=== PATIENT | female | born 1990 | race African-American/Black ===

== ENCOUNTER 2016-08-01 13:23 | Emergency (ER) | payer OTHER ==
[2016-08-01 13:42] VITALS: BP 111/58; PULSE 66; TEMP 97.8; BMI 21.7
[2016-08-01] MEDS ORDERED: IBUPROFEN 600 MG TABLET (FP) PO ONE ×2 (14:49→14:51)
--- NOTE | 2016-08-01 15:08 | PDOC ---
History of Present Illness - General Chief Complaint: Pain Stated Complaint: L HAND INJURY Time Seen by Provider: 08/01/16 14:26 History Source: Patient Exam Limitations: No Limitations - History of Present Illness Initial Comments: 08/01/16 15:07 26 yr female no medical history with pain to left hand fter fall 3 days ago and a cough. no fever no chills no abd pain . Past History - Past Medical History Allergies/Adverse Reactions: Allergies Allergy/AdvReac Type Severity Reaction Status Date / Time No Known Allergies Allergy Verified 08/01/16 13:42 Home Medications: Ambulatory Orders NK [No Known Home Medication] 08/01/16 Disorders: Yes (IRREG MENSES) Suicide Attempt (Hx): No - Immunization History Immunization Up to Date: (?) - Psycho/Social/Smoking Cessation Hx Anxiety: No Suicidal Ideation: No Smoking Status: No Smoking History: Never smoked Number of Cigarettes Smoked Daily: 0 Information on smoking cessation initiated: No Hx Alcohol Use: No Drug/Substance Use Hx: No *Physical Exam - Vital Signs Last Vital Signs Temp Pulse Resp BP Pulse Ox 97.8 F 66 18 111/58 99 08/01/16 13:39 08/01/16 13:39 08/01/16 13:39 08/01/16 13:39 08/01/16 13:39 - Physical Exam General Appearance: Yes: Nourished, Appropriately Dressed HEENT: positive: EOMI, GIGI, TMs Normal, Pharynx Normal Neck: positive: Supple. negative: Tender, Lymphadenopathy (R), Lymphadenopathy (L) Respiratory/Chest: positive: Lungs Clear, Normal Breath Sounds. negative: Chest Tender Cardiovascular: positive: Regular Rhythm, Regular Rate Musculoskeletal: positive: Normal Inspection Extremity: positive: Normal Capillary Refill, Normal Inspection, Normal Range of Motion Integumentary: positive: Normal Color, Dry, Warm Neurologic: positive: Fully Oriented, Alert, Normal Mood/Affect, Normal Response , Motor Strength 5/5 ED Treatment Course - ADDITIONAL ORDERS Additional order review: Laboratory Results 08/01/16 13:54 Urine HCG, Qual Negative - RADIOLOGY Radiology Studies Ordered: Category Date Time Status HAND- LEFT [RAD] Stat Radiology 08/01/16 14:49 Taken - Medications Given in the ED: ED Medications Discontinued Medications Generic Name Dose Route Start Last Admin Trade Name Freq PRN Reason Stop Dose Admin Ibuprofen 600 mg 08/01/16 14:49 08/01/16 14:53 Motrin - PO 08/01/16 14:50 600 mg ONCE ONE Administration Medical Decision Making - Medical Decision Making 08/01/16 15:09 cc: left hand/fifth finger injury 3 days ago cough yesterday with pain to back with coughing no SOB no chest pain no fever or chills no PE risk factors will give motrin and xray left hand r/o fracture *DC/Admit/Observation/Transfer Diagnosis at time of Disposition: Cough Hand contusion Qualifiers: Encounter type: initial encounter Laterality: left Qualified Code(s): S60.222A - Contusion of left hand, initial encounter - Discharge Dispostion Disposition: HOME Condition at time of disposition: Good - Referrals Referrals: Sneha Portillo [Primary Care Provider] - - Patient Instructions Additional Instructions: take motrin as needed for pain (over the counter ibuprofen, advil or motrin take 600mg every 6hrs) follow with your doctor if any symptoms worsen
== END 2016-08-01 15:12 | disposition home or self-care (01) ==
LOC: JERFT 13:23
DX: S60.222A Contusion of left hand, initial encounter (principal); R05 Cough; W19.XXXA Unspecified fall, initial encounter; Y93.89 Activity, other specified; Y92.89 Other specified places as the place of occurrence of the external cause
CPT/HCPCS: 73130-TC-LT; 84703; 99281-25

== ENCOUNTER 2017-05-28 16:58 | Emergency (ER) | payer SELFPAY ==
[2017-05-28 17:02] VITALS: BP 122/73; PULSE 71; TEMP 98.6; BMI 20.3
--- NOTE | 2017-05-28 17:02 | PDOC ---
Rapid Medical Evaluation Time Seen by Provider: 05/28/17 17:00 Medical Evaluation: Allergies Allergy/AdvReac Type Severity Reaction Status Date / Time No Known Allergies Allergy Verified 08/01/16 13:42 05/28/17 17:00 I have performed a brief in person evaluation of this patient. The patient presents with chief complaint of : toothache Pertinent PE findings: left sided facial pain and swelling for 2 days c/o left upper toothache I have ordered the following: The patient will proceed to the ER for further evaluation. Discharge Disposition - Referrals Referrals: Sneha Portillo [Primary Care Provider] - - Patient Instructions - Post Discharge Activity
--- NOTE | 2017-05-28 17:41 | PDOC ---
History of Present Illness - General Chief Complaint: Toothache Stated Complaint: TOOTH INFECTION Time Seen by Provider: 05/28/17 17:00 - History of Present Illness Initial Comments: 05/28/17 17:36 CHIEF COMPLAINT: tooth pain HISTORY OF PRESENT ILLNESS: 27 yo F with no PMH presents to [facility] with severe tooth pain. Patient states "my tooth broke yesterday and my entire face and cheek is hurting so badly." Patient denies any abscess, fever, chills, nausea, vomiting, diarrhea. PAST MEDICAL HISTORY: Denies past medical history FAMILY HISTORY: Denies SOCIAL HISTORY: Denies tobacco, alcohol, illicit drug use. SURGICAL HISTORY: Denies ALLERGIES: No known drug allergies REVIEW OF SYSTEMS General/Constitutional: Denies fever or chills. Denies weakness, weight change. HEENT: "My tooth hurts so bad it is radiating to my face." Denies change in vision. Denies ear pain or discharge. Denies sore throat. Cardiovascular: Denies chest pain or shortness of breath. Respiratory: Denies cough, wheezing, or hemoptysis. Gastrointestinal: Denies nausea, vomiting, diarrhea or constipation. Denies rectal bleeding. Genitourinary: Denies dysuria, frequency, or change in urination. Musculoskeletal: Denies joint or muscle swelling or pain. Denies neck or back pain. PHYSICAL EXAM General Appearance: Well-appearing, appropriately dressed. No apparent distress , no intoxication. HEENT: Missing 2nd superior L molar, fractured 1st suprior L molar. EOMI, PERRLA , normal ENT inspection, normal voice, TMs normal, pharynx normal. No conjunctival pallor. No photophobia, scleral icterus. Respiratory/Chest: Lungs CTAB. Cardiovascular: RRR. S1, S2. Musculoskeletal/Extremities: Normal inspection. FROM of all extremities, normal capillary refill. No tenderness to extremities, pedal edema, swelling, erythema or deformity. Integumentary: Appropriate color, dry, warm. No cyanosis, erythema, jaundice or rash Neurologic: hay baler II-XII intact. Fully oriented, alert. Appropriate mood/affect. Motor strength 5/5. No appreciable EOM palsy, facial droop or sensory deficit. Past History - Past Medical History Allergies/Adverse Reactions: Allergies Allergy/AdvReac Type Severity Reaction Status Date / Time No Known Allergies Allergy Verified 05/28/17 17:02 Home Medications: Ambulatory Orders Clindamycin [Cleocin -] 150 mg PO Q6H #28 capsule 05/28/17 Clindamycin [Cleocin -] 300 mg PO Q6HPO #28 capsule 05/28/17 COPD: No Disorders: Yes (IRREG MENSES) - Immunization History Immunization Up to Date: (?) - Suicide/Smoking/Psychosocial Hx Smoking Status: No Smoking History: Never smoked Number of Cigarettes Smoked Daily: 0 Hx Alcohol Use: No Drug/Substance Use Hx: No Substance Use Type: None *Physical Exam - Vital Signs Last Vital Signs Temp Pulse Resp BP Pulse Ox 98.6 F 71 20 122/73 100 05/28/17 16:59 05/28/17 16:59 05/28/17 16:59 05/28/17 16:59 05/28/17 16:59 Medical Decision Making - Medical Decision Making 05/28/17 17:38 27 yo F with no PMH presents to [facility] with severe tooth pain. Superior alveolar nerve block performed, patient expressed immediate relief. Clindamycin 450 mg TID *DC/Admit/Observation/Transfer Diagnosis at time of Disposition: Pain, dental - Discharge Dispostion Disposition: HOME Condition at time of disposition: Stable Admit: No - Prescriptions Prescriptions: Clindamycin [Cleocin -] 150 mg PO Q6H #28 capsule Clindamycin [Cleocin -] 300 mg PO Q6HPO #28 capsule - Referrals Referrals: Sneha Portillo [Primary Care Provider] - - Patient Instructions Printed Discharge Instructions: DI for Dental Pain Additional Instructions: Please take medications as prescribed; complete the entire course of medication unless otherwise directed by your dentist. Please see your dentist within the next 3-5 days for further treatment of your tooth pain. If you develop increased swelling to your face, any abscess inside your mouth, fever, chills, nausea, vomiting, diarrhea, rash, or any new or worsening symptoms, please return to the ER. - Post Discharge Activity
== END 2017-05-28 17:46 | disposition home or self-care (01) ==
LOC: JERFT 16:58
DX: K08.89 Other specified disorders of teeth and supporting structures (principal)
CPT/HCPCS: 99281-25

== ENCOUNTER 2021-11-14 00:10 | Emergency (ER) | payer OTHER ==
[2021-11-14 00:37] VITALS: BP 102/65; PULSE 77; TEMP 97.8; BMI 21.1
[2021-11-14 02:08] LABS: BASO % 0.4 % (0-2.0); EOS % 1.2 % (0-4.5); HEMATOCRIT 36.9 % (32.4-45.2); HEMOGLOBIN 12.2 GM/dL (10.7-15.3); LYMPH % 31.6 % (8-40); MCH 26.6 pg (25.7-33.7); MCHC 33.2 g/dl (32.0-36.0); MEAN CELL VOLUME 80.2 fl (80-96); MEAN PLT VOLUME 8.4 fl (7.5-11.1); MONO % 8.7 % (3.8-10.2); NEUT % 58.1 % (42.8-82.8); PLATELET COUNT 251 10^3/uL (134-434); WHITE BLOOD COUNT 8.4 K/mm3 (4.0-10.0)
[2021-11-14 02:11] LABS: EPI CELLS 10 /uL (0-25.1); HYALINE CASTS 1 /uL (0-3.1); PH,URINE 7.5 (5.0-8.0); URINE APPEARANCE CLEAR; URINE BACTERIA 414 /uL (0-1359); URINE BILIRUBIN NEGATIVE (NEGATIVE); URINE COLOR YELLOW; URINE GLUCOSE (UA) NEGATIVE (NEGATIVE); URINE KETONE 1+ (NEGATIVE); URINE LEUK ESTERASE NEGATIVE (NEGATIVE); URINE NITRITE NEGATIVE (NEGATIVE); URINE PROTEIN NEGATIVE (NEGATIVE); URINE RBC 37 /uL (0-23.9); URINE WBC 10 /uL (0-25.8)
[2021-11-14 02:37] LABS: CALCIUM 8.9 mg/dL (8.5-10.1)
[2021-11-14 02:38] LABS: ALBUMIN 3.7 g/dl (3.4-5.0); BLOOD UREA NITROGEN 6.6 mg/dL (7-18)
[2021-11-14 02:41] LABS: CREATININE 0.5 mg/dL (0.55-1.3)
[2021-11-14 02:42] LABS: BILIRUBIN,TOTAL 0.4 mg/dL (0.2-1)
== END 2021-11-14 04:13 | disposition home or self-care (01) ==
LOC: JER 00:10
DX: O20.0 Threatened abortion (principal); N39.0 Urinary tract infection, site not specified
CPT/HCPCS: 36415; 76801-TC; 80053; 81003; 85025; 86850; 86900; 86901; 87086; 99284-25

== ENCOUNTER 2021-11-17 11:07 | Emergency (ER) | payer OTHER ==
[2021-11-17 11:23] VITALS: BP 104/59; PULSE 73; TEMP 97.7; BMI 20.3
== END 2021-11-17 13:51 | disposition home or self-care (01) ==
LOC: JER 11:07
DX: O99.341 Other mental disorders complicating pregnancy, first trimester (principal); F41.9 Anxiety disorder, unspecified; Z3A.13 13 weeks gestation of pregnancy
CPT/HCPCS: 99281-25

== ENCOUNTER 2021-12-23 19:11 | Emergency (ER) | payer OTHER ==
[2021-12-23 19:23] VITALS: BP 110/63; PULSE 86; TEMP 98.9; BMI 20.3
[2021-12-23] MEDS ORDERED: FLUORESCEIN NA 1 EA STRIP OD ONE (20:30)
[2021-12-23] MEDS ORDERED: TETRACAINE 0.5% OPHTH SOLN 2 ML BOTTLE OD ONE (20:30)
[2021-12-23] MEDS ORDERED: TETRACAINE 0.5% OPHTH SOLN 2 ML BOTTLE ONE (20:31)
[2021-12-23] MEDS ORDERED: FLUORESCEIN NA 1 EA STRIP ONE (20:31)
[2021-12-23] MEDS ORDERED: ERYTHROMYCIN 0.5% OPHTHALMIC OINTMENT 3.5 GM TUBE OD ONE (23:37)
[2021-12-23] MEDS ORDERED: CYCLOPENTOLATE HCL 1% OPHTH SOLN 2 ML BOTTLE OD ONE (23:37)
[2021-12-24] MEDS ORDERED: CIPROFLOXACIN 0.3% EYE DROPS 5 ML BOTTLE ONE (00:24)
[2021-12-24] MEDS ORDERED: ERYTHROMYCIN 0.5% OPHTHALMIC OINTMENT 3.5 GM TUBE ONE (00:25)
[2021-12-24] MEDS ORDERED: ASCORBIC ACID 500 MG TABLET (FP) ONE (00:25)
[2021-12-24] MEDS ORDERED: CIPROFLOXACIN 0.3% EYE DROPS 5 ML BOTTLE OD ONE ×2 (00:27→23:40)
[2021-12-24] MEDS ORDERED: ASCORBIC ACID 500 MG TABLET (FP) PO ONE ×2 (00:29→23:40)
== END 2021-12-24 01:20 | disposition home or self-care (01) ==
LOC: JER 19:11
DX: S05.02XA Injury of conjunctiva and corneal abrasion without foreign body, left eye, initial encounter (principal)
CPT/HCPCS: 99284-25